=== PATIENT | male | born 1975 | race Caucasian/White ===

== ENCOUNTER 2018-04-22 01:10 | Inpatient (IN) | payer SELFPAY ==
[~2018-04-22] VITALS: Ht 170.2 cm; Wt 75.7 kg
[2018-04-22] MEDS ORDERED: SODIUM CHLORIDE 0.9% 1,000 ML IV ONE (06:41)
[2018-04-22 07:47] LABS: HEMATOCRIT. 43.3 % (42.0-52.0); HEMOGLOBIN. 15.2 g/dL (14.0-18.0); MEAN CORPUSCULAR HEMOGLOBIN 31.7 pg (28.0-32.0); MEAN CORPUSCULAR VOLUME 90.7 fL (80.0-94.0); MEAN PLATELET VOLUME 7.1 fl (7.4-10.4); PLATELET 218 x1000/uL (130-400); RED BLOOD CELL COUNT 4.78 mill/uL (4.7-6.1); RED CELL DISTRIBUTION WIDTH 13.5 % (11.6-14.6)
[2018-04-22 07:56] LABS: PROTHROMBIN TIME 10.4 sec (9.1-11.1)
[2018-04-22 08:35] LABS: PLATELET ESTIMATE NORMAL
[2018-04-22 09:33] LABS: CLARITY URINE CLEAR (CLEAR); COLOR URINE YELLOW (YELLOW); KETONES URINE TRACE (NEGATIVE); LEUKOCYTE ESTERASE URINE NEGATIVE (NEGATIVE); NITRITE URINE NEGATIVE (NEGATIVE); OCCULT BLOOD URINE NEGATIVE (NEGATIVE); PH URINE 5.5 (4.5-8.0); PROTEIN URINE NEGATIVE (NEGATIVE); SPECIFIC GRAVITY URINE 1.028 (1.005-1.030); UROBILINOGEN URINE 0.2 E.U./dL (0.2-1.0)
[2018-04-22] MEDS ORDERED: ONDANSETRON HCL 4MG/2ML INJ IM ONE (09:45)
[2018-04-22 10:18] LABS: ETHANOL BLOOD < 10 mg/dL
[2018-04-22 10:28] LABS: CHLORIDE 99 mEq/L (98-107)
[2018-04-22 14:07] LABS: *BARBITURATES SCREEN URINE NEGATIVE (NEGATIVE); *BENZODIAZEPINES SCREEN URINE NEGATIVE (NEGATIVE); METHADONE URINE SCREEN NEGATIVE (NEGATIVE); OPIATES URINE SCREEN NEGATIVE (NEGATIVE)
[2018-04-22 14:08] LABS: CANNABINOID URINE SCREEN NEGATIVE (NEGATIVE)
[2018-04-22 14:20] LABS: *COCAINE SCREEN URINE NEGATIVE (NEGATIVE)
[2018-04-22 14:22] LABS: *AMPHETAMINES SCREEN URINE PRESUMTIVE POSITIVE (NEGATIVE)
[2018-04-22 14:23] LABS: PHENCYCLIDINE URINE SCREEN NEGATIVE (NEGATIVE)
[2018-04-22 16:40] VITALS: BP 88/42
[2018-04-22] MEDS ORDERED: KETOROLAC 30MG/ML VIAL IV PRN (17:00)
[2018-04-22] MEDS ORDERED: ONDANSETRON HCL 4MG/2ML INJ IV PRN (17:00)
[2018-04-22] MEDS: ACETAMINOPHEN 325MG TABLET PO PRN (17:57)
[2018-04-22 18:00] VITALS: BP 88/42
[2018-04-22] MEDS ORDERED: SODIUM CHLORIDE 0.9% 1,000 ML IV SCH (18:00)
[2018-04-22] MEDS: LEVOFLOXACIN 500MG PREMIX 100 ML IV SCH (19:53)
[2018-04-22 20:00] VITALS: BP 97/47
[2018-04-22 20:30] VITALS: BP 108/52
[2018-04-22] MEDS: METRONIDAZOLE 500 MG PREMIX 100 ML IV SCH (23:07)
[2018-04-23] VITALS: BP 99/61
[2018-04-23 04:00] VITALS: BP 97/56
[2018-04-23] MEDS: METRONIDAZOLE 500 MG PREMIX 100 ML IV SCH ×3 (05:41→22:05)
[2018-04-23 07:08] LABS: BASOPHILS % 0.3 % (0.0-2.0); EOSINOPHILS % 0.4 % (0.0-5.0); HEMATOCRIT. 40.6 % (42.0-52.0); LYMPHOCYTES % 19.4 % (20.0-50.0); MEAN CORPUSCULAR HEMOGLOBIN 31.5 pg (28.0-32.0); MEAN PLATELET VOLUME 7.1 fl (7.4-10.4); MONOCYTES % 10.7 % (2.0-8.0); NEUTROPHILS % 69.2 % (40.0-76.0); PLATELET 175 x1000/uL (130-400); RED BLOOD CELL COUNT 4.46 mill/uL (4.7-6.1); RED CELL DISTRIBUTION WIDTH 13.6 % (11.6-14.6)
[2018-04-23 08:00] VITALS: BP 96/48
[2018-04-23 08:40] LABS: CHLORIDE 104 mEq/L (98-107)
[2018-04-23 12:00] VITALS: BP 105/61
[2018-04-23] MEDS: NICOTINE 21MG PATCH TD SCH (14:29)
[2018-04-23 16:00] VITALS: BP 116/67
[2018-04-23] MEDS: LEVOFLOXACIN 500MG PREMIX 100 ML IV SCH (18:40)
[2018-04-23] MEDS: ACETAMINOPHEN 325MG TABLET PO PRN (22:39)
[2018-04-24] MEDS: METRONIDAZOLE 500 MG PREMIX 100 ML IV SCH (05:57)
[2018-04-24 07:59] VITALS: BP 103/77
[2018-04-24] MEDS: NICOTINE 21MG PATCH TD SCH (08:43)
[2018-04-24 10:19] VITALS: BP 101/71
== END 2018-04-24 11:25 | disposition home or self-care (01) | DRG 720 ==
LOC: ER 01:10 → 6EST 14:04 → ENRESERV 15:22 → 7WST 23:30
PROVIDERS: ADMIT Internal Medicine; ATTEND Internal Medicine
DX: A41.9 Sepsis, unspecified organism (principal); K76.0 Fatty (change of) liver, not elsewhere classified; A04.9 Bacterial intestinal infection, unspecified; K82.8 Other specified diseases of gallbladder; F15.90 Other stimulant use, unspecified, uncomplicated; F17.210 Nicotine dependence, cigarettes, uncomplicated; Z71.6 Tobacco abuse counseling; Z71.51 Drug abuse counseling and surveillance of drug abuser
CPT/HCPCS: 36415; 74176; 76705; 78227; 80048; 80305; 83605; 93005; 96360; 96361; 96372; 99285; A9537; G0482; J1956; J2405; J3490; J7030